=== PATIENT | male | born 1960 | race Caucasian/White ===

== ENCOUNTER 2021-08-13 14:05 | Outpatient (CLI) | payer BC | END 2021-08-13 14:06 | disposition home or self-care (01) | LOC: BICMRI 14:05 | PROVIDERS: ATTEND Podiatrist | DX: M76.72 Peroneal tendinitis, left leg (principal); M65.872 Other synovitis and tenosynovitis, left ankle and foot; M65.9 Synovitis and tenosynovitis, unspecified ==